=== PATIENT | male | born 1940 | race Caucasian/White ===

== ENCOUNTER 2016-03-05 08:36 | Inpatient (IN) | payer OTHER ==
[2016-02-02 13:22] VITALS: BMI 25.0
--- NOTE | 2016-02-02 13:41 | PAT Medication Instructions ---
Service Date Feb 02, 2016. Current Home Medication List Atenolol (Tenormin), 25 MG PO HS Calcium/Vitamin D (Caltrate 600 Plus *), 1 TAB PO QAM Celecoxib (Celebrex), 200 MG PO QAM Glucosamine-Chondroitin (Osteo Bi-Flex Regular Str), 1 TAB PO QAM Multivitamin (Multivitamin), 1 TAB PO QAM Vitamin Mixture (Kiley-C), 1 TAB PO QAM [Gabino Red], 1 TAB PO QAM Medication Instructions For Your Scheduled Surgery - Check with surgeon for instructions: Celecoxib (Celebrex), 200 MG PO QAM - Hold the following medications 2 weeks prior to surgery: [Gabino Red], 1 TAB PO QAM Glucosamine-Chondroitin (Osteo Bi-Flex Regular Str), 1 TAB PO QAM - Hold the following medications the morning of surgery: Calcium/Vitamin D (Caltrate 600 Plus *), 1 TAB PO QAM Multivitamin (Multivitamin), 1 TAB PO QAM Vitamin Mixture (Kiley-C), 1 TAB PO QAM - Take the following medications as scheduled the night before surgery: Atenolol (Tenormin), 25 MG PO HS If you have any questions please call us at [phone] (Meredith Pastor PA-C) or [phone] or [phone]
[2016-02-02 14:27] LABS: BASO % 0.1 %; BASO ABS # 0.01 K/uL (0-0.2); COMPLETE YES; EOS % 0.1 %; HEMATOCRIT 43.4 % (42-52); IG% 0.8 %; LYMPH % 8.8 %; LYMPH ABS # 0.64 K/uL (1.2-3.4); MEAN CELL VOLUME 90.2 fL (80-100); MEAN CORPUSCULAR HEMOGLOBIN 30.8 pg (25-34); MEAN CORPUSCULAR HGB CONC 34.1 g/dl (32-36); MEAN PLATELET VOLUME 10.8 fL (7.4-10.4); MONO % 1.9 %; NEUT % 88.3 %; PLATELET COUNT 172 K/uL (130-400); RED BLOOD COUNT 4.81 M/uL (4.7-6.1); WHITE BLOOD COUNT 7.25 K/uL (4.8-10.8)
--- NOTE | 2016-02-02 14:29 | DIAGNOSTIC IMAGING REPORT ---
CHEST 2 VIEWS ROUTINE CLINICAL HISTORY: Preoperative chest COMPARISON STUDY: None FINDINGS: The heart is at the upper limits of normal in size. There is no failure. There is no focal pulmonary consolidation. There are no pleural effusions. There are multiple old right-sided rib fractures.[ IMPRESSION: No active disease in the chest. Electronically signed by: Zay Nguyen M.D. 02/02/2016 2:28 PM
[2016-02-02 14:42] LABS: INR 0.9 (0.9-1.1); PROTHROMBIN TIME (PATIENT) 9.9 SECONDS (9.0-12.0)
[2016-02-02 14:45] LABS: MANUAL MICROSCOPIC REQUIRED? NO; REVIEW REQ? NO; URINE APPEARANCE CLEAR (CLEAR); URINE BILIRUBIN NEG (NEG); URINE COLOR YELLOW; URINE NITRITE NEG (NEG); URINE SPECIFIC GRAVITY 1.023 (1.000-1.030); UROBILINOGEN NEG (NEG); ZZUR CULT IF INDIC CLEAN CATCH NO
[2016-02-02 14:59] LABS: BUN/CREATININE RATIO 26.9 (10-20); CREATININE 1.2 mg/dl (0.60-1.40); POTASSIUM 5.1 mmol/L (3.5-5.1)
[2016-02-02 18:14] LABS: CALCIUM 9.4 mg/dl (8.5-10.1)
--- NOTE | 2016-03-01 12:03 | HISTORY & PHYSICAL EXAMINATION ---
DATE OF ADMISSION: 03/05/2016 CHIEF COMPLAINT: Right knee pain. HISTORY OF PRESENT ILLNESS: James is a 75-year-old male with a multiple year history of pain in his right knee. The patient rates his pain an 8/10. He has pain with his daily activities. He has limited standing and walking tolerance. Pain is worse with weightbearing. The patient has had injections and anti-inflammatories without relief. He has failed conservative treatment and is scheduled for right total knee arthroplasty. PAST MEDICAL HISTORY: Right bundle branch block, acid reflux. He denies heart disease, diabetes or DVT. PAST SURGICAL HISTORY: Left total knee arthroplasty. SOCIAL HISTORY: The patient drinks 8-10 drinks per week. He lives in a 2-story home but functions on one level. He is and retired. FAMILY HISTORY: Negative for DVT. MEDICATIONS: Centrum Silver 1 daily, Kiley-C 1000 mg, Osteo Bi-Flex, maddy red, Caltrate, Celebrex 200 mg, atenolol 25 mg. ALLERGIES: None. REVIEW OF SYSTEMS: See HPI. Ten other systems reviewed, all negative. PHYSICAL EXAMINATION: VITAL SIGNS: Height 6 foot 2, weight 199 pounds, BMI is 26. GENERAL: This is a well-developed, well-nourished male who is alert and oriented x3. Mood and affect are appropriate. HEAD, EYES, EARS, NOSE, AND THROAT: Normocephalic, atraumatic. Mucous membranes are moist and intact. NECK: Supple without lymphadenopathy. HEART: Regular rate and rhythm without murmurs, rubs or gallops. LUNGS: Clear to auscultation without wheezes or rhonchi. ABDOMEN: Soft and nontender. Bowel sounds are equal and active. EXTREMITIES: No ecchymosis, redness or warmth. He has varus deformity. Range of motion is from 0-115 degrees with +2 laxity. He is neurovascularly intact with +5/5 strength. X-RAY EXAMINATION: AP and lateral views show joint space narrowing and osteophyte formation. IMPRESSION: Degenerative joint disease, right knee. PLAN: The patient will be admitted for a right total knee arthroplasty. We will plan on aspirin for DVT prophylaxis. The patient is doing outpatient physical therapy. PCP is Jose Antonio Padilla PA-C in [place].
[~2016-03-05] VITALS: Ht 188 cm; Wt 88.6 kg
[2016-03-05] VITALS (9 sets, daily range): BP systolic 117–134; BP diastolic 64–78; PULSE 54–87; TEMP 36.3–36.7; O2SAT 93–100; Ht 188 cm; Wt 88.6 kg
[~2016-03-05 08:36] MED LIST: ACETAMINOPHEN 500 MG TAB PO SCH; ATEN-173 PO; BUPIVACAINE 0.25% 30 ML VIAL ONE; BUPIVACAINE 0.5 % 5 MG/1 ML PF 10ML VIAL ONE; CEFAZOLIN 2000 MG/60 ML D5W 60 ML IV SCH; CLB200 PO; CLTP PO; CeleBREX 200 MG CAP PO SCH; DEXAMETHASONE 4 MG TAB PO SCH; FAMOTIDINE 20 MG TAB PO SCH; GABAPENTIN 300 MG CAP PO SCH; GLUCTAB18 PO; LACTATED RINGER'S 1000ML 1,000 ML IV SCH; LACTATED RINGER'S 1000ML 500 ML IV ONE; MEGA RED PO; METOCLOPRAMIDE HCL 10 MG TAB PO SCH; MULT-506 PO; OXYCODONE HCL 10 MG TABCR (OXYCONTIN) PO SCH; POLYMYXIN B SULFATE 100,000 UNITS in NSS 100ML IR SCH; ROPIVACAINE 5MG/ML 30 ML 150 MG, BUPIVACAINE/EPINEPHR 0.5% MPF 30 ML, KETOROLAC TROMETH... INFIL SCH; VANCOMYCIN INJ 400 MG in NSS 100ML IR SCH; VITA500T2 PO
--- NOTE | 2016-03-05 09:50 | History & Physical Bridge Note ---
H&P Re-Evaluation Bridge Note: I have examined the patient, reviewed the History & Physical and in the interval since the performance of the History & Physical I have noted the following changes of clinical significance: No changes noted
[2016-03-05] MEDS ORDERED: MIDAZOLAM HCL 1 MG/ML 2ML VIAL ONE (10:00)
[2016-03-05] MEDS ORDERED: ORTHO JOINT ANESTHETIC ONE (10:36)
[2016-03-05] MEDS: TRANEXAMIC ACID INJ 1,000 MG in SODIUM CHLORIDE 0.9% 100ML 100 ML IV SCH ×2 (11:05→15:01)
[2016-03-05] MEDS ORDERED: HYDROmorphone INJ 2 MG/ML SYR/VIAL IV PRN (11:15)
[2016-03-05] MEDS ORDERED: ONDANSETRON INJ 2 MG/ML 2 ML VIAL IV PRN ×2 (11:15→12:45)
[2016-03-05] MEDS ORDERED: ATROPINE SULFATE 0.1 MG/ML 5ML SYR IV PRN (11:15)
[2016-03-05] MEDS ORDERED: PHENYLEPHRINE 100MCG/ML 5ML SYR IV PRN (11:15)
[2016-03-05] MEDS ORDERED: EpHEDrine SULFATE INJ 50 MG/ML AMP IV PRN (11:15)
[2016-03-05] MEDS ORDERED: KETOROLAC TROMETHAMINE 30 MG/ML VIAL IV. PRN (11:15)
[2016-03-05] MEDS ORDERED: BUPIVACAINE/EPINEPHRINE 0.25% 1:200,000 30 ML VIAL INJ ONE (12:23)
[2016-03-05] MEDS ORDERED: BACITRACIN 50000 UNIT VIAL IR ONE (12:23)
--- NOTE | 2016-03-05 12:33 | [facility] Post Operative Brief Note ---
Immediate Operative Summary Operative Date Mar 05, 2016. Pre-Operative Diagnosis Right Knee Degenerative Joint Disease Post-Operative Diagnosis Right Knee Degenerative Joint Disease Procedure(s) Performed Right Total Knee Arthroplasty-Cemented Surgeon Dr. Keyshawn Ambrosio Assistant In Nursing Surgeon(s) Ever Stevenson PA-C Estimated Blood Loss 50ml Findings TRICOMP DJD Specimens A. Right Knee Bone and Tissue Complication(s) None Disposition Recovery Room / PACU
[2016-03-05] MEDS ORDERED: PROPOFOL IV EMULSION 10 MG/ML 20 ML VIAL IV ONE (12:44)
[2016-03-05] MEDS ORDERED: DiphenhydrAMINE HCL 50 MG/ML VIAL IV PRN (12:45)
[2016-03-05] MEDS ORDERED: SOD PHOSPHATE/SOD BIPHOSPHATE ENEMA 132 ML BTL PR PRN (12:45)
[2016-03-05] MEDS ORDERED: MAGNESIUM HYDROXIDE SUSP 30 ML UDC PO PRN (12:45)
[2016-03-05] MEDS ORDERED: ALUMINUM/MAGNESIUM/SIMETH (MAALOX MAX) 30 ML UDC PO PRN (12:45)
[2016-03-05] MEDS ORDERED: ZOLPIDEM TARTRATE 5 MG TAB PO PRN (12:45)
[2016-03-05] MEDS ORDERED: OXYCODONE HCL IR 5 MG TAB (IMMEDIATE RELEASE) PO PRN (12:45)
[2016-03-05] MEDS ORDERED: KETOROLAC TROMETHAMINE 15 MG/ML VIAL IV. PRN (12:45)
[2016-03-05] MEDS ORDERED: BISACODYL 10 MG SUPP PR PRN (12:45)
[2016-03-05] MEDS ORDERED: TRAMADOL HCL 50 MG TAB PO PRN (12:45)
[2016-03-05] MEDS ORDERED: METOCLOPRAMIDE HCL INJ 5 MG/ML 2 ML VIAL IV PRN (12:45)
[2016-03-05] MEDS ORDERED: MoRPHine SULFATE 2 MG/ML CARP IV PRN (12:45)
--- NOTE | 2016-03-05 13:36 | DIAGNOSTIC IMAGING REPORT ---
RIGHT KNEE 1 OR 2 VIEWS ROUTINE CLINICAL HISTORY: Postop arthroplasty COMPARISON: None. DISCUSSION: There are postsurgical changes of a total right knee arthroplasty and patellar resurfacing. The femoral and tibial components appear well seated. Overlying surgical drains are evident. IMPRESSION: Postsurgical changes of a total right knee arthroplasty. Electronically signed by: Zay Nguyen M.D. 03/05/2016 1:34 PM Dictated Date/Time: 03/05/2016 1:33 PM
--- NOTE | 2016-03-05 14:34 | Anesthesiology Progress Note ---
Anesthesia Post Op Note Date & Time Mar 05, 2016 at 14:33 Vital Signs Pain Intensity: 0 Vital Signs Past 12 Hours Date Time Temp Pulse Resp B/P Pulse Ox O2 Delivery O2 Flow Rate FiO2 03/05/16 14:21 73 17 96 03/05/16 14:21 77 17 03/05/16 14:18 103/57 03/05/16 14:16 74 24 96 03/05/16 14:16 75 24 03/05/16 14:13 112/62 03/05/16 14:11 66 17 96 03/05/16 14:11 70 17 03/05/16 14:08 106/65 03/05/16 14:06 61 19 97 03/05/16 14:06 60 19 03/05/16 14:03 107/56 03/05/16 14:01 72 18 03/05/16 14:01 69 18 96 03/05/16 13:59 118/62 03/05/16 13:59 36.7 60 17 118/62 96 Nasal Cannula 2 03/05/16 13:56 67 18 98 03/05/16 13:56 66 18 03/05/16 13:53 104/63 03/05/16 13:51 58 19 03/05/16 13:51 46 19 96 03/05/16 13:48 109/61 03/05/16 13:46 60 14 03/05/16 13:46 58 14 97 03/05/16 13:43 110/65 03/05/16 13:41 68 25 03/05/16 13:41 70 25 98 03/05/16 13:38 117/57 03/05/16 13:36 68 18 97 03/05/16 13:36 71 18 03/05/16 13:35 70 27 97 03/05/16 13:35 68 27 03/05/16 13:34 106/66 03/05/16 13:30 74 19 99 03/05/16 13:30 71 19 03/05/16 13:28 105/69 03/05/16 13:25 69 19 99 03/05/16 13:25 72 19 03/05/16 13:23 105/64 03/05/16 13:20 63 19 03/05/16 13:20 57 19 99 03/05/16 13:19 113/61 03/05/16 13:15 60 17 03/05/16 13:15 47 17 99 03/05/16 13:13 111/55 03/05/16 13:10 59 13 03/05/16 13:10 36.8 54 14 109/54 98 Mask 10 03/05/16 13:10 55 13 99 03/05/16 08:59 36.5 80 20 119/73 93 Room Air Notes Mental Status: alert / awake / arousable, participated in evaluation Pt Amnestic to Procedure: Yes Nausea / Vomiting: adequately controlled Pain: adequately controlled Airway Patency, RR, SpO2: stable & adequate BP & HR: stable & adequate Hydration State: stable & adequate Anesthetic Complications: no major complications apparent
[2016-03-05] MEDS: D5W AND 1/2NSS + 20MEQ KCL 1,000 ML IV SCH (15:52)
[2016-03-05] MEDS: ACETAMINOPHEN 500 MG TAB PO SCH (17:30)
--- NOTE | 2016-03-05 18:05 | OPERATIVE REPORT ---
DATE OF OPERATION: 03/05/2016 PREOPERATIVE DIAGNOSIS: Degenerative arthritis right knee. POSTOPERATIVE DIAGNOSIS: Same. PROCEDURE: Right total knee patient matched implant. SURGEON: Dr. Ambrosio. [place] REPRESENTATIVE: RAVINDRA Solo. ANESTHESIA: Spinal. BLOOD LOSS: 50 mL. REPLACEMENT FLUIDS: 1700 mL crystalloid. DRAINS: Hemovac x2. CULTURES: None. COMPLICATIONS: None. COMPONENTS USED: [facility] Knee System: Femur size 7, tibia size 7 x 9, patella size 41. NOTE: RAVINDRA Solo was present and assisted throughout due to the complicated nature of this case. He helped with preparation and set up. He first assisted throughout and personally closed the capsule, subcutaneous, skin layers and applied the postoperative dressing. DESCRIPTION OF PROCEDURE: Following satisfactory spinal, the patient was supine. The tourniquet was placed but not inflated. The lower extremity was prepared with ChloraPrep and draped sterilely. Following a surgical time-out, a midline incision was made with a trivector approach. The knee showed severe grade 4 changes throughout. The cruciate ligaments were excised. The patient matched femoral block was applied. Femoral distal rotation and resection were set and completed. The 4-in-1 block was used to finish preparation of the femur. The patient matched tibial block was applied. Tibial resection was completed. The patella was freehand cut. Soft tissue balancing was completed and a trial reduction showed good tensioning and stability on the collateral ligaments, stable range of motion, and the patella tracked well. The trial components were removed. The capsule was prepared with the orthopedic cocktail and after irrigation, the components were cemented using Simplex G cement. When the cement had hardened, the knee was checked and showed good stability. A Betadine soak was performed while the cement was hardening and then irrigated. Two drains were placed. The arthrotomy was closed with a running suture of 0 V-Loc. Subcutaneous tissues with 2-0 Vicryl and the skin with a running subcuticular stitch of 3-0 V-Loc. Dermabond and a dry dressing were applied. The patient was returned to his bed in stable condition. I attest to the content of the Intraoperative Record and any orders documented therein. Any exceptio ns are noted below.
[2016-03-05] MEDS ORDERED: TRANEXAMIC ACID INJ 1,000 MG in SODIUM CHLORIDE 0.9% 100ML 100 ML IV ONE (20:00)
[2016-03-05] MEDS: CEFAZOLIN IV 2,000 MG in DEXTROSE 5% 50ML 50 ML IV SCH (20:06)
[2016-03-05] MEDS: ASPIRIN 81 MG ECTAB PO SCH (21:25)
[2016-03-05] MEDS: OXYCODONE HCL 10 MG TABCR (OXYCONTIN) PO SCH (21:25)
[2016-03-05] MEDS: SENNA 8.6 MG TAB PO SCH (21:26)
[2016-03-06] MEDS: ACETAMINOPHEN 500 MG TAB PO SCH ×3 (02:05→17:54)
[2016-03-06] MEDS: D5W AND 1/2NSS + 20MEQ KCL 1,000 ML IV SCH ×2 (02:06→10:44)
[2016-03-06 02:50] VITALS: BP 106/56; PULSE 69; TEMP 36.7; O2SAT 97
[2016-03-06] MEDS: CEFAZOLIN IV 2,000 MG in DEXTROSE 5% 50ML 50 ML IV SCH (03:18)
[2016-03-06 06:28] LABS: HEMATOCRIT 37.8 % (42-52); MEAN CORPUSCULAR HGB CONC 34.4 g/dl (32-36); MEAN PLATELET VOLUME 11.3 fL (7.4-10.4); PLATELET COUNT 134 K/uL (130-400); WHITE BLOOD COUNT 11.02 K/uL (4.8-10.8)
[2016-03-06 06:57] LABS: BUN/CREATININE RATIO 18.6 (10-20); CALCIUM 8.1 mg/dl (8.5-10.1); CREATININE 1.2 mg/dl (0.60-1.40); POTASSIUM 4.7 mmol/L (3.5-5.1)
--- NOTE | 2016-03-06 07:42 | Orthopedic Progress Note ---
Orthopedic Progress Note Date of Service Mar 06, 2016. Subjective Post OP Day: 1 Reports: feeling well, pain controlled w PO medications, Denies: SOB, chest pain , complaints, light headedness Objective calves soft nontender, N/V intact, dressing C/D/I, A&O x3, toes mobile, hemovac drainage (200 LAST SHIFT ) Date Time Temp Pulse Resp B/P Pulse Ox O2 Delivery O2 Flow Rate FiO2 03/06/16 07:27 Room Air 03/06/16 02:50 36.7 69 18 106/56 97 Room Air 03/06/16 00:00 Room Air 03/05/16 23:05 36.4 80 18 117/64 96 Room Air 03/05/16 21:23 74 129/73 74 03/05/16 20:00 Room Air 03/05/16 19:21 36.7 54 18 125/78 96 Room Air 03/05/16 17:35 36.7 76 18 131/72 100 Nasal Cannula 2.0 03/05/16 16:39 36.4 65 18 118/75 98 Nasal Cannula 2.0 03/05/16 15:38 36.3 76 18 120/70 99 Nasal Cannula 2.0 03/05/16 15:05 36.6 73 16 134/77 98 Nasal Cannula 2.0 03/05/16 14:35 36.7 87 16 121/70 95 Nasal Cannula 2.0 03/05/16 14:35 95 Nasal Cannula 2.0 03/05/16 14:35 Nasal Cannula 2.0 03/05/16 14:21 73 17 96 03/05/16 14:21 77 17 03/05/16 14:18 103/57 03/05/16 14:16 74 24 96 03/05/16 14:16 75 24 03/05/16 14:13 112/62 03/05/16 14:11 66 17 96 03/05/16 14:11 70 17 03/05/16 14:08 106/65 03/05/16 14:06 61 19 97 03/05/16 14:06 60 19 03/05/16 14:03 107/56 03/05/16 14:01 72 18 03/05/16 14:01 69 18 96 03/05/16 13:59 118/62 03/05/16 13:59 36.7 60 17 118/62 96 Nasal Cannula 2 03/05/16 13:56 67 18 98 03/05/16 13:56 66 18 03/05/16 13:53 104/63 03/05/16 13:51 58 19 03/05/16 13:51 46 19 96 03/05/16 13:48 109/61 03/05/16 13:46 60 14 03/05/16 13:46 58 14 97 03/05/16 13:43 110/65 03/05/16 13:41 68 25 03/05/16 13:41 70 25 98 03/05/16 13:38 117/57 03/05/16 13:36 68 18 97 03/05/16 13:36 71 18 03/05/16 13:35 70 27 97 03/05/16 13:35 68 27 03/05/16 13:34 106/66 03/05/16 13:30 74 19 99 03/05/16 13:30 71 19 03/05/16 13:28 105/69 03/05/16 13:25 69 19 99 03/05/16 13:25 72 19 03/05/16 13:23 105/64 03/05/16 13:20 63 19 03/05/16 13:20 57 19 99 03/05/16 13:19 113/61 03/05/16 13:15 60 17 03/05/16 13:15 47 17 99 03/05/16 13:13 111/55 03/05/16 13:10 59 13 03/05/16 13:10 36.8 54 14 109/54 98 Mask 10 03/05/16 13:10 55 13 99 03/05/16 08:59 36.5 80 20 119/73 93 Room Air Laboratory Results 24 Hours: Test 03/06/16 05:27 Hematocrit 37.8 % Hemoglobin 13.0 g/dL Assessment & Plan Assessment: POD 1 R TKA Plan: MONITOR DRAINAGE TODAY HOME TOMORROW W [facility]PP[facility] AT [facility] Inhouse Planning Pain Management: Celebrex, Oxycontin, PO Tylenol, Oxy IR DVT Prophylaxis: TEDs, SCDs, ASA Discharge Planning Discharge Planning: home with oppt Pain Management: Celebrex, Oxycontin, PO Tylenol, Oxy IR DVT Prophylaxis: TEDs, ASA Therapy: Physical Therapy
[2016-03-06 08:02] VITALS: BP 128/72; PULSE 60; TEMP 36.7; O2SAT 98
[2016-03-06] MEDS: MULTIVITAMIN TAB PO SCH (08:34)
[2016-03-06] MEDS: PANTOprazole SOD 40 MG TAB PO SCH (08:34)
[2016-03-06] MEDS: ASPIRIN 81 MG ECTAB PO SCH ×2 (08:34→20:32)
[2016-03-06] MEDS: OXYCODONE HCL 10 MG TABCR (OXYCONTIN) PO SCH ×2 (08:34→20:32)
[2016-03-06] MEDS: CeleBREX 200 MG CAP PO SCH (08:35)
--- NOTE | 2016-03-06 09:48 | Anesthesiology Progress Note ---
Anesthesia Post Op Note Date & Time Mar 06, 2016 at 09:47 Vital Signs Pain Intensity: 0.0 Vital Signs Past 12 Hours Date Time Temp Pulse Resp B/P Pulse Ox O2 Delivery O2 Flow Rate FiO2 03/06/16 08:02 36.7 60 16 128/72 98 Room Air 03/06/16 07:27 Room Air 03/06/16 02:50 36.7 69 18 106/56 97 Room Air 03/06/16 00:00 Room Air 03/05/16 23:05 36.4 80 18 117/64 96 Room Air Notes Mental Status: alert / awake / arousable, participated in evaluation Pt Amnestic to Procedure: Yes Nausea / Vomiting: adequately controlled Pain: adequately controlled Airway Patency, RR, SpO2: stable & adequate BP & HR: stable & adequate Hydration State: stable & adequate Neuraxial Anesthesia: sensory block resolved Anesthetic Complications: no major complications apparent
[2016-03-06 11:26] VITALS: BP 109/67; PULSE 49; TEMP 36.7; O2SAT 100
[2016-03-06 15:08] VITALS: BP 110/65; PULSE 70; TEMP 36.7; O2SAT 96
[2016-03-06] MEDS: SENNA 8.6 MG TAB PO SCH (20:32)
[2016-03-06 23:15] VITALS: BP 115/56; PULSE 54; TEMP 36.7; O2SAT 95
[2016-03-07] MEDS: ACETAMINOPHEN 500 MG TAB PO SCH ×2 (02:23→09:53)
[2016-03-07 07:06] VITALS: BP 139/66; PULSE 64; TEMP 36.8; O2SAT 96
[2016-03-07] MEDS: ASPIRIN 81 MG ECTAB PO SCH (07:32)
[2016-03-07] MEDS: PANTOprazole SOD 40 MG TAB PO SCH (07:33)
[2016-03-07] MEDS: MULTIVITAMIN TAB PO SCH (07:33)
[2016-03-07] MEDS: CeleBREX 200 MG CAP PO SCH (07:33)
[2016-03-07] MEDS: OXYCODONE HCL 10 MG TABCR (OXYCONTIN) PO SCH (07:33)
[2016-03-07] MEDS ORDERED: SNK PO (08:07)
[2016-03-07] MEDS ORDERED: ACET-1138 PO (08:07)
[2016-03-07] MEDS ORDERED: ONDA8TAB6 PO (08:07)
[2016-03-07] MEDS ORDERED: MORP15TA19 PO (08:07)
[2016-03-07] MEDS ORDERED: RXC5 PO (08:07)
[2016-03-07] MEDS ORDERED: CLB200 PO (08:07)
[2016-03-07] MEDS ORDERED: ASPEC81 PO (08:07)
--- NOTE | 2016-03-07 08:07 | Orthopedic Progress Note ---
Orthopedic Progress Note Date of Service Mar 07, 2016. Subjective Post OP Day: 2 Reports: feeling well, pain controlled w PO medications, Denies: SOB, calf pain , complaints, nausea / vomiting Objective calves soft nontender, N/V intact, incision C/D/I, A&O x3, toes mobile Date Time Temp Pulse Resp B/P Pulse Ox O2 Delivery O2 Flow Rate FiO2 03/07/16 07:06 36.8 64 16 139/66 96 Room Air 03/06/16 23:25 Room Air 03/06/16 23:15 36.7 54 16 115/56 95 Room Air 03/06/16 15:45 Room Air 03/06/16 15:08 36.7 70 16 110/65 96 Room Air 03/06/16 11:26 36.7 49 16 109/67 100 Room Air Assessment & Plan Assessment: POD 2 R TKA Plan: MONITOR DRAINAGE TODAY HOme today OPPTT Inhouse Planning Pain Management: Celebrex, Oxycontin, PO Tylenol, Oxy IR DVT Prophylaxis: TEDs, SCDs, ASA Discharge Planning Discharge Planning: home with oppt ([facility] ) Pain Management: Celebrex, Oxycontin, PO Tylenol, Oxy IR DVT Prophylaxis: TEDs, ASA Therapy: Physical Therapy
--- NOTE | 2016-03-07 08:15 | Discharge Instructions ---
Discharge Instructions Admission Reason for Admission: Right Knee Arthritis Discharge Discharge Diagnosis / Problem: Right Knee djd Discharge Goals Goal(s): Decrease discomfort, Improve function Activity Recommendations Activity Limitations: per Instructions/Follow-up section Weightbearing Status: Right weightbearing (as tolerated) . Instructions / Follow-Up Instructions / Follow-Up ACTIVITY RECOMMENDATIONS: SELF CARE INSTRUCTIONS AFTER TOTAL KNEE REPLACEMENT A. You may need to continue a physical therapy program after discharge from the hospital. There are several options available to you. Your doctor will assist you in selecting the best one for you. 1. An out-patient facility 2 to 3 times a week for therapy or home therapy. 2. Continue working on all exercises taught to you in the hospital. Your goals should be to increase bending of your knee to 90 degrees and beyond and to fully straighten your knee. B. You may progress at your own pace from walking with a walker or crutches to a cane; then to no assistive devices. C. Make walking a part of your daily routine. Be up as much as comfortable with rest periods throughout the day. Rest with leg elevation is very important. Use the ice wrap frequently for the first 3-4 weeks. D. There are no restrictions on activities. You may ride in a car, shop, participate in core shaper sides and all social activities. E. Wear the long elastic stockings (ROSA hose) 20 hours a day for 2 weeks after surgery. They can be removed several times a day for laundering and for a bath. F. You may shower, no tub baths until cleared by your doctor. SPECIAL CARE INSTRUCTIONS: VERY IMPORTANT TO READ AND REVIEW A. There are a few signs you need to watch for after you are home. Call [facility] if you notice any of the followin. Increased severe knee pain. Some pain is expected especially when you exercise. 2. Increased swelling in your leg or knee; pain or swelling of the calf muscle in either lower leg. 3. Any fluid drainage from the incision. 4. Shortness of breath or chest pain. B. Please call [facility] at if you have any concerns or questions about your operation or recovery. The doctor or his nurse will return your call promptly. C. You must take antibiotics before dental work, bladder, bowel or other surgery. Your doctor will provide you with a permanent care to carry describing this precaution. IMPORTANT: * REMEMBER TO TAKE ASPIRIN, 81 MG, TWICE DAILY FOR 4 WEEKS UNLESS OTHERWISE DIRECTED. THIS IS YOUR BLOOD THINNER. * HIGH RISK PATIENTS MAY BE PRESCRIBED A STRONGER BLOOD THINNER. THIS WILL BE PROVIDED AT DISCHARGE. * CALL IF INCREASED PAIN, REDNESS, DRAINAGE OR FEVER GREATER THAT 101. * WEAR ROSA HOSE 20 HOURS PER DAY FOR 2 WEEKS. * DERMABOND Prineo- This is a mesh tape dressing that is covered with glue. It should remain in place until the incision is properly healed, usually 10-14 days. This dressing is designed to naturally slough off. You may trim the excess mesh tape as it peels off. Incision may be briefly wet in a shower. Dry immediately by blotting with a clean, dry towel. Do not bath or swim until instructed by your doctor. Do not scratch, rub, or pick at the dressing. Do not apply any topical ointments or lotions until dressing is completely removed and/or instructed by your doctor. There may be a small piece of suture material at one end of your incision. Do not pull or trim this. If it is bothersome or catching on clothing, you may cover it with a band-aid. . FOLLOW UP VISIT: If appointment is not already scheduled: Please call [facility] to make a follow-up appointment for 2 weeks after your surgery at . Current Hospital Diet Patient's current hospital diet: Regular Diet Discharge Diet Recommended Diet: Regular Diet Procedures Procedures Performed: Right Total Knee Arthroplasty-Cemented Pending Studies Studies pending at discharge: no Medical Emergencies . Who to Call and When: Medical Emergencies: If at any time you feel your situation is an emergency, please call 911 immediately. . Non-Emergent Contact Non-Emergency issues call your: Surgeon Call Non-Emergent contact if: temperature is above 101.5, your pain is worsening, wound has increased drainage, wound has increased redness . "Provider Documentation" section prepared by Ever Stevenson. VTE Core Measure Inpt VTE Proph given/why not?: Other Anticoagulation, T.E.D. Stockings, SCD's
[2016-03-07 08:41] VITALS: BP 139/66; PULSE 64; TEMP 36.8; O2SAT 96
--- NOTE | 2016-03-07 18:03 | DISCHARGE SUMMARY ---
DISCHARGE DIAGNOSIS: Degenerative joint disease, right knee. SECONDARY DIAGNOSES: History of right bundle branch block, GERD. CONSULTS: None. COMPLICATIONS: None. PROCEDURES: Right total knee arthroplasty performed by Dr. Cholo Ambrosio on 03/05/2016. BRIEF HISTORY: As dictated in the history and physical. HOSPITAL SUMMARY: The patient was admitted on the above-noted date and had the above-noted surgery performed which he tolerated well. On the first postoperative day, he was feeling well and pain was controlled and he had no complaints. Calves were soft, nontender, neurovascularly intact. Dressings clean, dry and intact. Toes were mobile. Hemovac drainage was 200 from the previous shift. Vital signs were stable. He was afebrile. Hemoglobin was 13.0 and he was started on physical therapy protocol and continued on DVT prophylaxis and pain management. By his second postoperative day, he was feeling well, pain was controlled. Calves were soft, nontender, neurovascularly intact. Incision was benign. Toes were mobile. Vital signs were stable. He was afebrile. Hemovac had been removed and he was progressing well with his physical therapy and remaining stable and it was felt he could be discharged to home with outpatient PT. For further review, please see chart. LAB AND X-RAY DATA: As per chart. DISCHARGE INSTRUCTIONS: The patient was discharged to home in satisfactory condition on 03/07/2016. DIET: Regular. ACTIVITY: Weightbearing as tolerated right lower extremity. Follow TK instruction sheets and special care instructions as noted, patient to call for appointment with Dr. Cholo Ambrosio in 2 weeks for followup. The patient to call for appointment if one has not been made for you. DISCHARGE MEDICATIONS: Acetaminophen 1000 mg p.o. q. 8 hours, aspirin 81 mg p.o. b.i.d., MS Contin 15 mg p.o. q. 12 hours, Zofran 8 mg p.o. t.i.d. p.r.n., oxycodone 5-10 mg p.o. q. 4 hours p.r.n., senna 17.2 mg p.o. at bedtime. Resume taking atenolol 25 mg p.o. at bedtime, Caltrate 600 Plus 1 tab p.o. q.a.m., Celebrex 200 mg p.o. q.a.m. Osteo Bi-Flex 1 tab p.o. q.a.m., multivitamin 1 tab p.o. q.a.m., vitamin mixture 1 tab p.o. q.a.m., and omega red one tab p.o. q. a.m.
== END 2016-03-07 13:03 | disposition home or self-care (01) | DRG 470 ==
LOC: ENRESERVDT → ENRESERVTM → C.ACU 08:36 → C.3E 09:30
PROVIDERS: ADMIT Orthopaedic Surgery; ATTEND Orthopaedic Surgery
PROC: 0SRC0J9 Replacement of Right Knee Joint with Synthetic Substitute, Cemented, Open Approach (ICD-10-PCS; principal; 2016-03-05 11:00)
DX: M17.11 Unilateral primary osteoarthritis, right knee (principal); K21.9 Gastro-esophageal reflux disease without esophagitis; I45.10 Unspecified right bundle-branch block